=== PATIENT | female | born 1985 | race Caucasian/White ===

== ENCOUNTER 2025-02-07 07:34 | Inpatient (IN) ==
[2025-02-07] MEDS ORDERED: CALCIUM CARBONATE 500 MG CHEWABLE TAB PO PRN (07:49)
--- NOTE | 2025-02-07 07:58 | History & Physical Report ---
Date of Service February 07, 2025 Assessment & Plan (1) Encounter for induction of labor: Plan: 39 yo at 40w5d admitted for IOL for postdates. -Patient is resting comfortably. -Admits to shortness of breath but most likely due to baby positioning. Will continue to monitor. -Will order Pitocin and AROM to induce labor. -Will continue to monitor. (2) Elderly multigravida: (3) 40 weeks gestation of : Admission and Anticipated Discharge Date Admission Date: February 07, 2025 History of Present Illness Chief Complaint: IOL Primary Care Provider: NO PCP 39 yo at 40w5d admitted for IOL for postdates. Admits to contractions, movement, and regular care. Denies fluid loss and bloody how. Admits to shortness of breath. Had sinus pressure yesterday but nothing currently. Denies fevers/chills/sweats, Headache, CP, LE pain, breast pain, dysuria. GBS neg, RH+ and Delivery Plans GDM w/prior *wants to do testing to see if gdm this time, *plan 2hr gtt at 16 and 28wks. - passed 2hr gtt both times AMA Weekly NST's @ 36 weeks Labs Lab Results OB Labs: Blood Type O Positive 06/29/24 Antibody Screen NEGATIVE 06/29/24 Hgb 12.3 g/dl (12.0-16.0) 11/09/24 Hct 36.6 % (37.0-47.0) L 11/09/24 MCV 91.4 fL (80.0-100.0) 06/29/24 Plt Count 247 K/uL (130-400) 06/29/24 Rubella IgG Antibody Immune (Immune) 06/29/24 Treponema pallidum Ab Negative (Negative) 11/09/24 Hep Bs Antigen Negative (Negative) 06/29/24 Hepatitis C Antibody Negative (Negative) 06/29/24 HIV 1&2 Ab/P24 Ag 4thGn Negative (Negative) 06/29/24 OB Optional Labs: Chlamydia trachomatis RNA Not Detected (NotDetected) 06/29/24 Neisseria gonorrhoeae RNA Not Detected (NotDetected) 06/29/24 Labs Reviewed: declines all aneuploidy testing smp declines msafp smp Allergies Allergy/AdvReac Type Severity Reaction Status Date / Time No Known Allergies Allergy Verified 01/31/25 08:45 Home Medications Medication Instructions Recorded Confirmed Type docosahexaenoic acid 200 mg mg PO 04/21/24 01/31/25 History capsule ( DHA) 1 tab PO DAILY 02/07/25 02/07/25 History Patient History Medical History (Updated 02/07/25 @ 10:49 by Sanjeev Reed MD) History of chicken pox Surgical History S/P wisdom tooth extraction Family History Mother Ovarian cancer Grandfather (Maternal) Heart disease Grandmother (Maternal) Heart disease Denies family history of Breast cancer Colorectal cancer Social History Smoking Status: Never smoker Do You Dip or Chew Tobacco: No; Hx Alcohol Use: No Hx Substance Use: No Preferred Language: Greenlandic Communication Ability: Effective Vp Human Resources Required: No Beliefs That Will Affect Care: None marital status: marital status details: Ralf Aparicio (41) [phone] Current Living Situation: Spouse Current Living Situation Comment: Patient lives with spouse, 4 daughters, a dog and a snake. current occupational status: other current occupation: homemaker Feels Safe at Home: Yes Safety Concerns: Feels Safe At This Time Assistive Devices: None OB History Past Pregnancies Del. Date GA wks Lbr Lgth wt Sex Type del Anes Place Del Prov ? 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 Unremarkable Review of Systems as per Subjective HPI Physical Exam Constitutional: WD/WN, vitals as above Eyes: + anicteric sclerae and EOM intact bilat erally Neck: normal visual inspection Respiratory: normal respiratory effort, lungs clear to auscultation Cardiovascular: Rate/Rhythm: regular rate and regular rhythm Heart Sounds: normal S1 and normal S2; no murmur Extremities: + edema (1+ B/L in lower extremities ); no calf tenderness Gastrointestinal (Abdomen): Percussion/Palpation: abdomen soft; abdomen nontender Skin: no rashes, warm and dry Psychiatric: Eye Contact: good eye contact Speech: normal rate/rhythm/volume of speech Thought Process: goal directed thought process and linear/logical thought process Genitourinary: OB Exam Monitor Tracing: + category I exam per Dr. Reed Results & Data Vital Signs (Past 12 Hours) Vital Signs Pulse BP 02/07/25 07:49 100 H 119/73 Monitoring External Monitor Baseline: 150 Variability: Minimal Accels: Present Early Decels: None Variable Decels: None Late Decels: None Tocodynamometer Contractions are irregular duration and interval Supervising Physician Co-Signing Physician Notes Patient seen with resident and agree with the above findings and plan. Category 1 tracing at present. Will start oxytocin per regular protocol. History of 4 prior vaginal deliveries without complication. Resident Activity Tracking Resident Involvement: Resident Care Provided Care Provided: OB Delivery (2) Elderly multigravida Trimester: third trimester Qualified Code(s): O09.523 - Supervision of elderly multigravida, third trimester
[2025-02-07 08:57] LABS: Hematocrit (blood only) 36.1 % (37.0-47.0); Hemoglobin 12.3 g/dl (12.0-16.0); Mean Corpuscular Hemoglobin 30.1 pg (25.0-34.0); Mean Corpuscular Volume 88.5 fL (80.0-100.0); Platelet Count 167 K/uL (130-400); RDW Standard Deviation 42.1 fL (36.4-46.3); Red Blood Count 4.08 M/uL (4.20-5.40); White Blood Count 10.48 K/ul (4.8-10.8)
[2025-02-07] MEDS: LACTATED RINGER'S 1,000 ML IV PRN (09:24)
[2025-02-07] MEDS: OXYTOCIN 30 UNITS/NSS 30 UNITS/500 ML BAG IV PRN ×2 (09:25→17:10)
[2025-02-07] MEDS: BUTORPHANOL TARTRATE 1 MG/ML VIAL IV ONE ×2 (15:25→18:16)
[2025-02-07] MEDS: LIDOCAINE 1% LOCAL 20 ML VIAL INFIL PRN (16:30)
--- NOTE | 2025-02-07 16:55 | Delivery Summary ---
Vaginal Delivery Summary Date of Service February 07, 2025 Vaginal Delivery Summary and 2nd Degree LAC Patient progressed to 10 cm dilated, 100% effaced, +2 station pressure intact perineum without anesthesia and delivered a viable with weight and Apgars pending. As a delivered without difficulty and was quickly followed by shoulders and body. was vigorous upon delivery and a 1 minute delayed cord clamping was initiated. Cord was then doubly clamped and cut remained on maternal abdomen. Cord blood obtained and attention turned to the delivery of the placenta which delivered intact with three-vessel cord gentle cord traction. On inspection perineum, vagina and cervix there is noted to be second-degree perineal laceration which was pared with 3-0 Vicryl with traditional crown stitch as well as bilateral labial's which were repaired with 4-0 Vicryl with interrupted stitch. Both mother and stable in the immediate postdelivery timeframe. No complications noted and blood loss per QBL in chart. [facility] Vaginal Delivery Charge Delivery Type Details: and 2nd Degree LAC
[2025-02-07] MEDS ORDERED: ACETAMINOPHEN 325 MG TAB PO PRN (17:13)
[2025-02-07] MEDS ORDERED: OXYTOCIN 30 UNITS/NSS 30 UNITS/500 ML BAG IV PRN (17:13)
[2025-02-07] MEDS ORDERED: HYDROCORTISONE ACETATE 25 MG SUPP PR PRN (17:13)
[2025-02-07] MEDS: LIDOCAINE 1% LOCAL 20 ML VIAL INJ ONE (18:16)
[2025-02-07] MEDS: BENZOCAINE 20% SPRY 85 APPLN/85 GM CAN EXT PRN (19:06)
[2025-02-07] MEDS: IBUPROFEN 600 MG TAB PO PRN (19:06)
[2025-02-07] MEDS: DIPHTHER/TETAN/PERTUS Vaccine (Tdap, Adol/Adult) 0.5mL IM ONE (19:58)
[2025-02-07] MEDS: DOCUSATE SODIUM 100 MG CAP PO SCH (20:37)
[2025-02-08 06:38] LABS: Hematocrit (blood only) 34.0 % (37.0-47.0); Hemoglobin 11.4 g/dl (12.0-16.0); Mean Corpuscular Hemoglobin 30.0 pg (25.0-34.0); Mean Corpuscular Volume 89.5 fL (80.0-100.0); Platelet Count 150 K/uL (130-400); RDW Standard Deviation 43.1 fL (36.4-46.3); Red Blood Count 3.80 M/uL (4.20-5.40); White Blood Count 14.97 K/ul (4.8-10.8)
--- NOTE | 2025-02-08 06:47 | Obstetrical Progress Note ---
Date of Service February 08, 2025 Assessment & Plan (1) care and examination: Plan: 39 yo post- day 1 s/p [] Fells well today. Vital signs stable Continue post- care Encourage ambulation and Pain controlled even without ibuprofen and tylenol. Hgb stable Will continue to monitor. Plan to discharge tomorrow. Admission and Anticipated Discharge Date Admission Date: February 07, 2025 Supervising Physician Co-Signing Physician Notes Patient seen with resident and agree with the about findings and plan. Stable for discharge Subjective 39 yo post- day 1 s/p [] Ambulation: ambulating normally Voiding: no voiding problems Passing Gas:: Yes Diet Tolerance:: regular diet Feeding Type:: breast feeding Current Pain Level: 2/10 crampy pain with breast feeding. Has not been taking ibuprofen or tylenol for some time. Resting comfortably this AM in NAD. Denies fevers/chills, VASQUEZ, CP/palp, SOB/cough/wheezing, N/V, LE pain, breast pain/dschrg, UTI Sx. Review of Systems Review of Systems: as per Subjective HPI Physical Exam Constitutional: WD/WN, vitals as above Eyes: + anicteric sclerae and EOM intact bilat erally Neck: normal visual inspection Respiratory: normal respiratory effort, lungs clear to auscultation Cardiovascular: Rate/Rhythm: regular rate and regular rhythm Heart Sounds: normal S1 and normal S2; no murmur Extremities: + edema (trace-1+ B/L in lower extremities ); no calf tenderness Gastrointestinal (Abdomen): Percussion/Palpation: abdomen soft; abdomen nontender Skin: no rashes, warm and dry Psychiatric: Eye Contact: good eye contact Speech: normal rate/rhythm/volume of speech Thought Process: goal directed thought process and linear/logical thought process Genitourinary: uterus is firm and at level of umbilicus Results & Data Vital Signs (Past 12 Hours) Vital Signs Temp Pulse Pulse Pulse Resp BP BP 02/08/25 02:20 36.4 C L 80 16 105/65 02/07/25 23:35 37.5 C 75 18 104/65 02/07/25 20:15 02/07/25 20:15 36.6 C 90 18 106/68 02/07/25 19:55 18 02/07/25 19:34 87 02/07/25 19:34 114/60 02/07/25 19:18 83 02/07/25 19:18 122/66 02/07/25 19:05 18 02/07/25 19:04 79 02/07/25 19:04 118/64 02/07/25 18:48 97 H 02/07/25 18:48 122/69 Pulse Ox O2 Del Method 02/08/25 02:20 Room Air 02/07/25 23:35 Room Air 02/07/25 20:15 Room Air 02/07/25 20:15 96 Room Air 02/07/25 19:55 02/07/25 19:34 02/07/25 19:34 02/07/25 19:18 02/07/25 19:18 02/07/25 19:05 02/07/25 19:04 02/07/25 19:04 02/07/25 18:48 02/07/25 18:48 Laboratory Results Lab Results 02/07/25 02/08/25 Range/Units 08:39 06:21 WBC 10.48 14.97 H (4.8-10.8) K/ul RBC 4.08 L 3.80 L (4.20-5.40) M/uL Hgb 12.3 11.4 L (12.0-16.0) g/dl Hct 36.1 L 34.0 L (37.0-47.0) % MCV 88.5 89.5 (80.0-100.0) fL MCH 30.1 30.0 (25.0-34.0) pg MCHC 34.1 33.5 (32.0-36.0) g/dL RDW Std Deviation 42.1 43.1 (36.4-46.3) fL RDW Coeff of Taylor 13.0 13.2 (11.5-14.5) % Plt Count 167 150 (130-400) K/uL MPV 10.2 10.0 (9.4-12.4) fL Treponema pallidum Ab Negative (Negative) Blood Type O Positive Antibody Screen NEGATIVE Resident Activity Tracking Resident Involvement: Resident Care Provided Care Provided: OB Delivery
[2025-02-08] MEDS: PRENATAL VITAMIN 1 TAB PO SCH (07:31)
[2025-02-08] MEDS ORDERED: INFLUENZA VACC TS2025-26(6m+)/PF (IIV3) 0.5mL Syr IM ONE (08:00)
--- NOTE | 2025-02-09 05:54 | Obstetrical Progress Note ---
Date of Service February 09, 2025 Assessment & Plan (1) care and examination: Plan: 39 yo post- day 2 s/p [] Fells well today. Vital signs stable Continue post- care Encourage ambulation and Pain controlled with ibuprofen. Hgb stable Discharge today. Admission and Anticipated Discharge Date Admission Date: February 07, 2025 Supervising Physician Co-Signing Physician Notes Resident Physician Supervision Note: I interviewed and examined the patient. Discussed with Dr. Chadwick and agree with findings and plan as documented in the note. Any exceptions or clarifications are listed here: [ ] Documented By: Jaylin Lamar MD, FACOG, MSCP Subjective 39 yo post- day 2 s/p [] Ambulation: ambulating normally Voiding: no voiding problems Passing Gas:: Yes Diet Tolerance:: regular diet Feeding Type:: breast feeding Current Pain Level: Has 6/10 nipple pain when baby first latches. During the course of the feeding the pain becomes a 3/10. Also has some pain with her stitches. Ibuprofen helps with the pain. Resting comfortably this AM in NAD. Denies fevers/chills, VASQUEZ, CP/palp, SOB/cough/wheezing, N/V, LE pain, breast dschrg, UTI Sx. Review of Systems Review of Systems: as per Subjective HPI Physical Exam Constitutional: WD/WN, vitals as above Eyes: + anicteric sclerae and EOM intact bilat erally Neck: normal visual inspection Respiratory: normal respiratory effort, lungs clear to auscultation Cardiovascular: Rate/Rhythm: regular rate and regular rhythm Heart Sounds: normal S1 and normal S2; no murmur Extremities: + edema (1+ B/L in lower extremities ); no calf tenderness Gastrointestinal (Abdomen): Percussion/Palpation: abdomen soft; abdomen nontender Skin: no rashes, warm and dry Psychiatric: Eye Contact: good eye contact Speech: normal rate/rhythm/volume of speech Thought Process: goal directed thought process and linear/logical thought process Genitourinary: uterus is firm and at 1 cm above umbilicus. Results & Data Vital Signs (Past 12 Hours) Vital Signs Temp Pulse Resp BP Pulse Ox O2 Del Method 02/08/25 23:56 36.6 C 69 15 95/58 L 96 Room Air 02/08/25 19:05 37.0 C 78 18 102/65 96 Room Air Laboratory Results Lab Results 02/07/25 02/08/25 Range/Units 08:39 06:21 WBC 10.48 14.97 H (4.8-10.8) K/ul RBC 4.08 L 3.80 L (4.20-5.40) M/uL Hgb 12.3 11.4 L (12.0-16.0) g/dl Hct 36.1 L 34.0 L (37.0-47.0) % MCV 88.5 89.5 (80.0-100.0) fL MCH 30.1 30.0 (25.0-34.0) pg MCHC 34.1 33.5 (32.0-36.0) g/dL RDW Std Deviation 42.1 43.1 (36.4-46.3) fL RDW Coeff of Taylor 13.0 13.2 (11.5-14.5) % Plt Count 167 150 (130-400) K/uL MPV 10.2 10.0 (9.4-12.4) fL Treponema pallidum Ab Negative (Negative) Blood Type O Positive Antibody Screen NEGATIVE
[2025-02-09 08:06] VITALS: BP 101/66; PULSE 82; RESP 19; TEMP 98.2; O2SAT 97
== END 2025-02-09 14:50 | disposition home or self-care (01) | DRG 807 ==
LOC: 4S1 07:34 → 4E2 20:10